=== PATIENT | male | born 1970 | race Caucasian/White ===

== ENCOUNTER 2020-08-10 08:02 | Emergency (ER) | payer BC ==
[~2020-08-10] VITALS: Ht 180.3 cm; Wt 90.9 kg
[2020-08-10 08:04] VITALS: BP 155/112
[2020-08-10] MEDS ORDERED: ketorolac trometh. 30mg/ml inj. IM ONE (08:20)
[2020-08-10] MEDS ORDERED: phenazopyridine 100mg tablet PO ONE (08:20)
[2020-08-10 08:53] LABS: CLARITY,URINE CLOUDY (Clear); GLUCOSE, URINE NEGATIVE (Neg); KETONES,URINE NEGATIVE (Neg); LEUKOCYTE ESTERASE ,URINE NEGATIVE (Neg); NITRITES, URINE NEGATIVE (Neg); OCCULT BLOOD,URINE LARGE (Neg); PH,URINE 6.5 (4.8-8.0); PROTEIN,URINE 100 mg/dl (Neg)
[2020-08-10 08:58] LABS: UA COLLECTION TYPE CLN CATCH MIDSTREAM
[2020-08-10 08:59] LABS: COLOR,URINE DARK YELLOW (Yellow)
[2020-08-10 09:02] LABS: BACTERIA,URINE FEW /HPF (Neg); RBC,URINE 50-100 /HPF (0-2); SQUAMOUS EPITHELIAL CELL,UR FEW /LPF (FEW); WBC,URINE 0-4 /HPF (0-4)
[2020-08-10 09:03] LABS: MUCUS STRANDS MODERATE /LPF (Neg)
[2020-08-10] MEDS ORDERED: IBUP-1985 PO (09:20)
[2020-08-10] MEDS ORDERED: HYDR-3965 PO (09:20)
== END 2020-08-10 09:25 | disposition home or self-care (01) ==
LOC: ER 08:02
DX: N20.0 Calculus of kidney (principal); R10.84 Generalized abdominal pain; R31.9 Hematuria, unspecified; Z87.442 Personal history of urinary calculi; Z79.899 Other long term (current) drug therapy
CPT/HCPCS: 81001; 96372; 99283; J1885